=== PATIENT | female | born 1945 | race Asian ===

== ENCOUNTER 2016-10-25 05:36 | Inpatient (IN) | payer OTHER ==
--- NOTE | 2016-10-23 18:05 | PREOPHP ---
DATE OF ADMISSION: 10/25/2016 The patient to have surgery with Dr. Kay Colby, 10/25/2016. HISTORY OF PRESENT ILLNESS: Consultation requested by Dr. Kay Colby for medical evaluation and clearance of a 71-year-old woman about to undergo revision and re-do of a left shoulder replacement . PAST SURGICAL HISTORY: He has had shoulder surgery twice on the right and on the left, has had a hy sterectomy, also had ovarian cystectomy, carpal tunnel on the left side, and the bunion on the left side. Her pregnancies were vaginal. She has had no medical hospitalizations. MEDICATIONS: Takes the followin. Losartan 100 mg a day. 2. Simvastatin 20 mg a day. ALLERGIES: SHE IS ALLERGIC TO PENICILLIN. PAST MEDICAL HISTORY: Has had no fractures and describes her general health as being good. SOCIAL HISTORY: The patient is , has 2 children, 5 grandchildren. She does not smoke. Alco hol socially. Does drink coffee and worked at a [employer], and currently has no difficulty sleep ing at night. FAMILY HISTORY: Father at age 80, had lung issues. Mother, in her 30s of childbirth. Five si blings , mostly of heart. There is no diabetes or cancer. There was anemia and hypertensio n. REVIEW OF SYSTEMS: HEENT: Denies any significant headaches. CARDIORESPIRATORY: Denies any chest pain or shortness of breath. GASTROINTESTINAL: No melena or hematemesis. GENITOURINARY: No urgency, frequency. GYNECOLOGIC: Post hysterectomy. MUSCULOSKELETAL: Positive for left greater than right shoulder pain. NEUROPSYCHIATRIC: Unremarkable. GENERAL HEALTH: As above. PHYSICAL EXAMINATION: VITAL SIGNS: The patient's blood pressure was 122/80, pulse was 68 and regular, respirations were 1 8, temperature 98.6. Height 4 feet 9 inches, weight 124 pounds. GENERAL: The patient was noted to be a well-developed, well-nourished female, alert and cooperative , in no apparent acute distress, oriented to time, place, and person. HEAD, EARS, EYES, NOSE, AND THROAT: Head was atraumatic. Eyes: Pupils were equal, reactive to lig ht and accommodation. Fundi were benign. Tympanic membranes were unremarkable. Nose was negative. Mouth was unremarkable. Fair oral hygiene was present. NECK: Supple without any rigidity. Trachea was midline. Thyroid was unremarkable. Neck veins wer e flat. Carotid pulses were equal. No bruits were heard. BACK: Unremarkable. CHEST: Symmetrical. BREASTS AND AXILLARY: Did not reveal any masses. LUNGS: Clear to percussion and auscultation. HEART: PMI is fifth intercostal space at the midclavicular line. A regular sinus rhythm was noted. No significant murmurs, rubs, or gallops being elicited. ABDOMEN: Soft, good bowel sounds were noted. No significant organomegaly, masses, or tenderness. GENITALIA: Normal female external genitalia. PELVIC/RECTAL: Per ammonia technician, unremarkable. EXTREMITIES: Not revealing clubbing, edema, or cyanosis; however, there was scars from left shoulde r from prior surgeries. Peripheral pulses were physiologic. SKIN: Moist and warm without any eruptions. LYMPHATICS: No gross lymphadenopathy was noted. NEUROLOGIC: Grossly intact. IMPRESSION: 1. Post traumatic left shoulder injury with failed prior surgery. 2. Hypertension. 3. Hyperlipidemia. 4. Degenerative joint disease. 5. Menopausal. 6. Stable health. 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 The patien t's glucose minimally elevated (random glucose) 113, as well as magnesium of 2.6. CBC, UA, PT, PTT were normal. The patient's EKG revealed some minor ST-T wave changes, but a basic sinus rhythm, no acute changes being noted, and the patient's chest x-ray was within normal limits. DISCUSSION: Dr. Colby, I see no contraindication to this patient undergoing current proposed surg senait under desired form of anesthesia. We will be more than happy to follow her along with you john paul menendez her stay at [facility]. Thank you again, Dr. Colby, for allowing us to participate in care of this patient. Dictated By: MIRIAM CASTANON MD SS/AUSTEN Conf#: [id number] DID#: [id number] CC: KAY COLBY MD;*EndCC*
[2016-10-24 09:28] VITALS: BMI 26.2
[~2016-10-25] VITALS: Ht 144.8 cm; Wt 55.6 kg
[2016-10-25] VITALS (22 sets, daily range): BP systolic 91–127; BP diastolic 50–80; PULSE 71–95; RESP 14–19; Ht 144.8 cm; Wt 55.6 kg
[2016-10-25] MEDS ORDERED: CEFAZOLIN 2 GM/50 ML (PMX) 50 ML IVPB ONE (06:00)
[2016-10-25] MEDS ORDERED: SIMV5TAB50 PO (06:29)
[2016-10-25] MEDS ORDERED: LOSA100T7 PO (06:29)
[2016-10-25] MEDS ORDERED: oxyCODONE (CR) 10 MG TAB [oxyCONTIN] PO ONE (06:30)
[2016-10-25] MEDS ORDERED: BUPIVACAINE 0.5% (SDV) 30 ML, morphine SULFATE (PF) 8 MG, EPINEPHrine 0.3 MG, KETOROLAC... IRR SCH ×7 (06:30)
[2016-10-25] MEDS ORDERED: DEXAMETHASONE 1 MG TAB PO ONE (06:30)
[2016-10-25] MEDS ORDERED: traMADol 50 MG TAB PO ONE (06:30)
[2016-10-25] MEDS ORDERED: GABAPENTIN 300 MG CAP PO ONE (06:30)
[2016-10-25] MEDS ORDERED: TRANEXAMIC ACID 1,000 MG in SOD CHLORIDE 0.9% 100 ML IVPB ONE (06:30)
[2016-10-25] MEDS ORDERED: ROPIVACAINE 0.5 % 30 ML VIAL ONE (06:43)
[2016-10-25] MEDS ORDERED: MIDAZOLAM 1 MG/ML 2 ML INJ ONE (06:43)
[2016-10-25] MEDS ORDERED: CEFAZOLIN 1 GM INJ ONE (07:00)
[2016-10-25] MEDS ORDERED: LIDOCAINE 2% (SDV) 5 ML INJ ONE (07:00)
[2016-10-25] MEDS ORDERED: PROPOFOL 20 ML ONE (07:01)
[2016-10-25] MEDS ORDERED: THROMBIN 5000 UNIT VIAL ONE (07:17)
[2016-10-25] MEDS ORDERED: BUPIVACAINE 0.5%/EPI (SDV) 30 ML INJ ONE (07:17)
[2016-10-25] MEDS ORDERED: CA CHLORIDE 10% 10 ML SYRINGE ONE (07:17)
[2016-10-25] MEDS ORDERED: POLYMYXIN/BACITRACIN 1L IRRIG ONE (07:17)
[2016-10-25] MEDS ORDERED: MIDAZOLAM 1 MG/ML 2 ML INJ IV PRN (08:00)
[2016-10-25] MEDS ORDERED: FENTAnyl 50 MCG/ML VIAL IV PRN ×2 (08:00)
[2016-10-25] MEDS ORDERED: hydrALAzine 20 MG INJ IV PRN (08:00)
[2016-10-25] MEDS ORDERED: EPHEDrine SULFATE 50 MG/5 ML SYG IV PRN (08:00)
[2016-10-25] MEDS ORDERED: MEPERIDINE 25 MG INJ IV PRN (08:00)
[2016-10-25] MEDS ORDERED: ONDANSETRON 4 MG INJ IV PRN ×2 (08:00→08:30)
[2016-10-25] MEDS ORDERED: LABETALOL HCL 20MG INJ IV PRN (08:00)
[2016-10-25] MEDS ORDERED: METOCLOPRAMIDE 10 MG INJ IV PRN (08:00)
[2016-10-25] MEDS ORDERED: HYDROmorphONE (0.2 MG/ML) 10ML SYG IV PRN ×2 (08:00)
[2016-10-25] MEDS ORDERED: DIPHENHYDRAMINE 50 MG INJ IV PRN ×2 (08:00→08:30)
[2016-10-25] MEDS ORDERED: morphine (1 MG/ML) 10ML SYRINGE IV PRN ×2 (08:00)
[2016-10-25] MEDS ORDERED: EPHEDrine SULFATE 50 MG/5 ML SYG ONE (08:06)
[2016-10-25] MEDS ORDERED: METOCLOPRAMIDE 10 MG INJ ONE (08:06)
[2016-10-25] MEDS ORDERED: ONDANSETRON 4 MG INJ ONE (08:06)
[2016-10-25] MEDS ORDERED: MAGNESIUM HYDROXIDE 30ML CUP PO PRN (08:30)
[2016-10-25] MEDS ORDERED: morphine 4 MG/ML VIAL IV PRN (08:30)
[2016-10-25] MEDS ORDERED: TRANEXAMIC ACID 1,000 MG in SOD CHLORIDE 0.9% 100 ML IV ONE (08:30)
[2016-10-25] MEDS ORDERED: KETOROLAC 15 MG INJ IV PRN (08:30)
[2016-10-25] MEDS ORDERED: ZOLPIDEM 5 MG TAB PO PRN (08:30)
[2016-10-25] MEDS ORDERED: ACETAMINOPHEN 500 MG TAB PO PRN (08:30)
[2016-10-25] MEDS ORDERED: morphine 2 MG INJ IV PRN (08:30)
[2016-10-25] MEDS ORDERED: OXYCODONE/ACETAMINOPHEN (5/325) TAB PO PRN (08:30)
--- NOTE | 2016-10-25 08:51 | PDOCDIS ---
Discharge Instructions DIAGNOSIS Discharge Diagnosis: Left shoulder arthritis CONDITION Patient Condition: Good HOME CARE INSTRUCTIONS: Diet Instructions: Regular ACTIVITY: Activity Restrictions: Slowly Increase Activity Keep Limb Elevated Bathing Restrictions: Shower FOLLOW UP/APPOINTMENTS Appointments 2 weeks SCHOOL/WORK RELEASE May return to School/Work with: With Restrictions School/Work Release Comment: Five pound table top usage for one month KAY COLBY MD Oct 25, 2016 08:51
[2016-10-25] MEDS: SENNA/DOCUSATE NA (8.6MG/50MG) TAB PO SCH ×2 (09:00→20:29)
[2016-10-25] MEDS: LOSARTAN 50 MG TAB PO SCH (09:00)
--- NOTE | 2016-10-25 10:04 | OPR ---
DATE OF OPERATION: 10/25/2016 SURGEON: Kay Mueller MD HOSPICE ADMITTING CLERK: CLARK MITCHELL MD PREOPERATIVE DIAGNOSIS: Left shoulder degenerative osteoarthritis and rotator cuff tear. POSTOPERATIVE DIAGNOSES 1. Left shoulder secondary osteoarthritis. 2. Left shoulder massive unrepairable rotator cuff tear. 3. Failed rotator cuff repair. OPERATION PERFORMED: Left reverse total shoulder replacement. Carbon Setter surgeon Clark Mitchell MD, was asked to be present at my request as a result of the signifi cant surgical complexity associated with this procedure, including positioning of the extremity, man ipulation and protection of the neurovascular structures. In my opinion, the assistance offered by a surgical nurse is insufficient and Dr. Mitchell should be compensated for his time. PROCEDURE IN DETAIL: Following the administration of general endotracheal anesthesia, the patient w as placed in the beach chair position. The previously made deltopectoral incision was then incised once again and extended slightly distally. The subdeltoid plane was elevated. Significant scar tiss ue was encountered and the prior rotator cuff repair with multiple suture anchors. The anchors were removed. The superior and anterior rotator cuff were completely deficient. The humeral head was e roded completely superiorly consistent with chronic cuff arthropathy. Humeral osteophytes were dominguez roselyn. The glenoid was evaluated. Severe arthritic changes were noted there as well. The humeral he ad cut was then made in the appropriate degree of version and inclination. The glenoid was retracted and exposed. Capsulectomy completed. The central canal entered and prepa red for a DePuy baseplate. The actual baseplate with a standard length central PEG was then applied with 4 peripheral screws with solid fixation. A 36 mm glenosphere was then applied with solid fixa tion. Attention was then directed back to the humerus. An 8 mm stem was seen to be the best size with a 9 mm liner. The actual components were then placed in the appropriate degree of version and inclinat ion reduced, taken through a full range of motion and irrigated. The deltopectoral interval was rosario roximated using a running stitch followed by closure using 2-0 and 4-0. A Prineo dressing was then a pplied for closure. An UltraSling was applied. The patient was awakened, transported to recovery i n stable condition, having tolerated the procedure well. Estimated blood loss for this procedure wa s 100 mL. Postoperative x-rays will be obtained in the recovery room. Dictated By: KAY BURNS/AUSTEN Conf#: [id number] DID#: [id number]
--- NOTE | 2016-10-25 10:27 | HPN ---
Date/Time of Note Date/Time of Note DATE: 10/25/16 TIME: 10:26 Interval H&P Admission Note Pt. seen H&P reviewed: No system changes KAY COLBY MD Oct 25, 2016 10:27
--- NOTE | 2016-10-25 12:07 | RADRPT ---
PROCEDURE: XR left Shoulder. CLINICAL INDICATION: Postop TECHNIQUE: 2 views of the left shoulder are available for review. COMPARISON: None available FINDINGS: There is an intact reverse left total shoulder prosthesis without a periprosthetic fracture or dislo cation. Alignment is intact. Mild soft tissue swelling around the left shoulder is present. There is mild osseous spurring within the acromioclavicular joint with mild joint space narrowing. There is no acute fracture of the visualized left ribs. There are atherosclerotic calcifications w ithin the visualized aortic arch. RPTAT: ZZ IMPRESSION: 1. Intact left reverse total shoulder prosthesis. No acute fracture. 2. Mild osteoarthrosis of the acromioclavicular joint. .Olivia Metz MD, Date Time Electronically viewed and signed by .Olivia Metz MD, on 10/25/2016 12:06 .T/
[2016-10-25] MEDS: CEFAZOLIN 1 GM/50 ML (PMX) 50 ML IVPB SCH ×2 (13:15→19:38)
[2016-10-25] MEDS: DEXAMETHASONE 2 MG TAB PO SCH ×2 (13:15→17:45)
--- NOTE | 2016-10-25 14:11 | CONS ---
DATE OF ADMISSION: 10/25/2016 DATE OF CONSULTATION: The patient had surgery with Dr. Bobby Mueller 10/25/2016 HISTORY OF PRESENT ILLNESS: The patient is alert postoperatively in her room on the floor, complain ing of a little bit of pain in her left shoulder as well as some numbness in her hands, otherwise un remarkable. PHYSICAL EXAMINATION: VITAL SIGNS: Temperature 97.8, pulse 84, respirations 14, O2 saturation 97%, blood pressure 102/57. HEENT: Unremarkable. LUNGS: Clear. HEART: Reveals regular rhythm. IMPRESSION: 1. Status post left shoulder replacement. 2. Hypertension. 3. Hyperlipidemia. DISCUSSION: Plan is to continue patient's preop meds and management per Dr. Mueller. Thank you again, Dr. Mueller, for allowing us to participate in the care of this patient. Dictated By: MIRIAM CASTANON MD SS/NTS Conf#: [id number] DID#: [id number]
[2016-10-25] MEDS ORDERED: GABAPENTIN 300 MG CAP PO SCH (21:00)
[2016-10-25] MEDS ORDERED: ATORVASTATIN 10 MG TAB PO SCH (21:00)
[2016-10-26] MEDS: CEFAZOLIN 1 GM/50 ML (PMX) 50 ML IVPB SCH (03:08)
[2016-10-26] MEDS: OXYCODONE/ACETAMINOPHEN (5/325) TAB PO PRN ×2 (03:17→10:31)
[2016-10-26] MEDS: DEXAMETHASONE 2 MG TAB PO SCH ×2 (05:49)
--- NOTE | 2016-10-26 06:56 | DS ---
Date/Time of Note Date/Time of Note DATE: 10/26/16 TIME: 06:55 Discharge Summary Admission/Discharge Info Admit Date/Time Oct 25, 2016 at 05:36 Discharge Date/Time Today following physical therapy Final Diagnosis Left shoulder rotator cuff tear arthropathy Patient Condition: Good Consults None Procedures Left reverse total shoulder replacement Hx of Present Illness Chronic pain and stiffness with lack of function left shoulder Hospital Course Surgery followed by therapy followed by discharge home Home Meds Reported Medications Simvastatin* (Simvastatin*) 5 Mg Tablet, 20 MG PO QHS, #30 TAB 10/25/16 Losartan Potassium* (Losartan Potassium*) 100 Mg Tablet, 100 MG PO DAILY, TAB 10/25/16 Follow-up Plan 2 weeks KAY COLBY MD Oct 26, 2016 06:56
--- NOTE | 2016-10-26 06:58 | PN ---
Date/Time of Note Date/Time of Note DATE: 10/26/16 TIME: 06:56 24 hour Interval Summary Patient awake and alert with no complaints. Physical examination reveals that her wound is clean and dry. She is neurologically intact with no signs of DVT. She has minimal pain to palpation. Assessment: Status post total shoulder replacement Plan: Occupational therapy followed by discharge after that. Follow-up in 2 weeks. Physical Exam Vital Signs Date Time Temp Pulse Resp B/P Pulse Ox O2 Delivery O2 Flow Rate FiO2 10/25/16 19:37 98.3 59 19 100/50 100 10/25/16 12:50 Room Air Intake and Output 10/25/16 10/25/16 10/26/16 15:00 23:00 07:00 Intake Total 750 ml 800 ml 500 ml Output Total 50 ml 500 ml Balance 700 ml 800 ml 0 ml VTE Prophylaxis VTE Prophylaxis Intervention: anti-embolic stocking Lines/Catheters IV Catheter Type: Saline Lock Meza in Place: No Assessment/Plan Chief Complaint/Hosp Course Follow-up in 2 weeks Problems: Medications Medications Home Meds Reported Medications Simvastatin* (Simvastatin*) 5 Mg Tablet, 20 MG PO QHS, #30 TAB 10/25/16 Losartan Potassium* (Losartan Potassium*) 100 Mg Tablet, 100 MG PO DAILY, TAB 10/25/16 KAY COLBY MD Oct 26, 2016 06:57
[2016-10-26 07:40] VITALS: BP 119/56; RESP 18
[2016-10-26] MEDS: SENNA/DOCUSATE NA (8.6MG/50MG) TAB PO SCH (08:54)
[2016-10-26] MEDS: LOSARTAN 50 MG TAB PO SCH (08:54)
[2016-10-26] MEDS ORDERED: INFLUENZA VIRUS VACCINE 0.5 ML (DISPENSING) IM* ONE (09:00)
[2016-10-26] MEDS ORDERED: ASPIRIN 81 MG TAB PO SCH (09:00)
--- NOTE | 2016-10-26 09:38 | CONS ---
DATE OF ADMISSION: 10/25/2016 DATE OF CONSULTATION: TYPE OF CONSULTATION: Endocrinology followup. HISTORY OF PRESENT ILLNESS: The patient had a good night and is feeling well. No issues at this po int in time. PHYSICAL EXAMINATION: VITAL SIGNS: Temperature 98.7, pulse 60, respirations 18, blood pressure 119/56 and O2 sat 97% on r oom air. HEENT: Unremarkable. LUNGS: Clear. HEART: Reveals a regular rhythm. IMPRESSION: 1. Status post shoulder replacement on the left side. 2. Hypertension. 3. Hyperlipidemia. DISCUSSION: The patient is doing well. We will be going home today and treatment per Dr. Barton, medically stable. Advised to resume her prior medicines and continue her same medical regimen. Thank you again, Dr. Mueller, for allowing us to participate in care of this patient. Dictated By: MIRIAM DUNCAN/NTS Conf#: [id number] DID#: [id number]
== END 2016-10-26 10:45 | disposition home or self-care (01) | DRG 483 ==
LOC: REC 05:36 → MS1 10:10
PROVIDERS: ADMIT Orthopaedic Surgery; ATTEND Orthopaedic Surgery
PROC: 0RRK00Z Replacement of Left Shoulder Joint with Reverse Ball and Socket Synthetic Substitute, Open Approach (ICD-10-PCS; principal; 2016-10-25 07:00)
DX: M19.012 Primary osteoarthritis, left shoulder (principal); I10 Essential (primary) hypertension; M75.102 Unspecified rotator cuff tear or rupture of left shoulder, not specified as traumatic; E78.5 Hyperlipidemia, unspecified; G89.29 Other chronic pain; M25.612 Stiffness of left shoulder, not elsewhere classified
CPT/HCPCS: 73030; 86999; 90686; 97167; Z7610; C1776; J0171; J0690; J0735; J1885; J2250; J2274; J2405; J2765; J2795; J3370